=== PATIENT | male | born 1985 | race Caucasian/White ===

== ENCOUNTER → 2022-10-18 19:05 | Outpatient (BNVA) | payer BC, SELFPAY | PROVIDERS: Visit Provider Nurse Practitioner | DX: S99.922A Unspecified injury of left foot, initial encounter (principal); X58.XXXA Exposure to other specified factors, initial encounter | CPT/HCPCS: 73630 ==

== ENCOUNTER → 2024-03-05 17:41 | Outpatient (BNVA) | payer BC, MEDICAID, SELFPAY | PROVIDERS: Visit Provider Emergency Medicine | DX: S99.922A Unspecified injury of left foot, initial encounter (principal); W22.8XXA Striking against or struck by other objects, initial encounter | CPT/HCPCS: 73630 ==

== ENCOUNTER → 2025-04-19 14:33 | Outpatient (BNVA) | payer MEDICARE, BC, MEDICAID, SELFPAY | DX: R30.0 Dysuria (principal) | CPT/HCPCS: 87086 ==